=== PATIENT | male | born 2000 | race Caucasian/White ===

== ENCOUNTER 2021-09-30 09:55 | Day surgery (SDC) | payer OTHER ==
[~2021-09-30] VITALS: Ht 152.4 cm; Wt 56.7 kg
[2021-09-30] MEDS ORDERED: fentaNYL citrate 0.05 MG/ML VIAL ONE (11:38)
[2021-09-30] MEDS ORDERED: MIDAZOLAM 5 MG/5 ML VIAL ONE (11:38)
[2021-09-30] MEDS ORDERED: diphenhydrAMINE 50 MG/ML VIAL ONE (11:38)
[2021-09-30] MEDS ORDERED: LIDOCAINE 2% 100 MG/5 ML UJET TP ONE (11:38)
[2021-09-30] MEDS ORDERED: MIDAZOLAM 2 MG/2 ML VIAL IVP ONE (13:05)
[2021-09-30] MEDS ORDERED: fentaNYL citrate 0.05 MG/ML VIAL IVP ONE (13:05)
[2021-09-30] MEDS ORDERED: diphenhydrAMINE 50 MG/ML VIAL IVP ONE (13:05)
== END 2021-09-30 12:54 | disposition home or self-care (01) ==
LOC: MDS 09:55 → MMU 10:07 → MDS 12:54
PROVIDERS: ATTEND Internal Medicine Gastroenterology
DX: K62.5 Hemorrhage of anus and rectum (principal); K59.00 Constipation, unspecified; Z79.899 Other long term (current) drug therapy
CPT/HCPCS: 45380; J1200; J2250; J3010